=== PATIENT | female | born 1960 | race Caucasian/White ===

== ENCOUNTER 2017-08-15 09:31 | Outpatient (CLI) | payer OTHER ==
--- NOTE | 2017-08-15 12:03 | RAD ---
PA AND LATERAL VIEWS OF CHEST: Date: 08/15/17 HISTORY: Shortness of breath. FINDINGS: Comparison made with exam of 02/26/17. The heart size is normal. The lungs are hyperinflated with stable chronic changes. No focal areas of consolidation, pneumothorax, or pleural effusions are seen. No acute osseous abnormalities are iden tified. IMPRESSION: Stable exam. No acute process. POS: [facility]
== END 2017-08-15 09:32 | disposition home or self-care (01) ==
LOC: RAD-FRANK 09:31
PROVIDERS: ATTEND Nurse Practitioner Family
DX: R06.02 Shortness of breath (principal)
CPT/HCPCS: 71020

== ENCOUNTER 2017-10-11 15:53 | Inpatient (IN) | payer OTHER, SELFPAY ==
[2017-10-11] MEDS ORDERED: Albuterol Sulfate 2.5 mg/3 ml Neb NEB PRN (16:09)
[2017-10-11] MEDS ORDERED: Magnesium Sulfate 3 GM in Sodium Chloride 0.9% 100 ML IVPB SCH (16:15)
[2017-10-11] MEDS ORDERED: methylPREDNISolone Sod Succ/PF 125 MG/2 ML VIAL IVP SCH (16:15)
[2017-10-11 16:20] VITALS: BMI 23.0
[2017-10-11 17:38] LABS: #Basophils 0.1 thou/uL (0.0-0.2); #Eosinphils 0.9 thou/uL (0.0-0.7); #Lymphocytes 3.3 thou/uL (1.20-3.40); #Monocytes 0.6 thou/uL (0.11-0.59); #Neutrophils 6.2 thou/uL (1.40-6.50); %Basophils 1.2 % (0.0-1.0); %Eosinophils 7.9 % (0.0-10.0); %Lymphocytes 29.7 % (21.0-51.0); %Monocytes 5.7 % (0.0-10.0); Hematocrit 44.5 % (36.0-47.0); Mean Platelet Volume 6.9 fL (7.4-10.4); Red Blood Cell (RBC) Count 4.76 mill/uL (4.20-5.40); White Blood Cell (WBC) Count 11.1 thou/uL (4.8-10.8)
[2017-10-11] MEDS: Sodium Chloride 0.45% 1,000 ML IV SCH (17:54)
[2017-10-11 17:58] LABS: Anion Gap 13 mmol/L (10-20); BUN (Urea Nitrogen) 8 mg/dL (9.8-20.1); Calc. Creatinine Clearance 76 mL/min (70-130); Calcium 10.6 mg/dL (7.8-10.44); Carbon Dioxide 27 mmol/L (22-29); Chloride 102 mmol/L (98-107); Estimated GFR-MDRD 77
--- NOTE | 2017-10-11 18:43 | HP ---
I met just a little less than a month ago. She was referred for COPD. She has a lifelong history of smoking. She was down to smoking 4 or 5 cigarettes a day when she saw me. She tried Chantix and nicotine gum and everything else without much success. She had never tried lobo otine, electronic cigarettes because they were bad for her, but I had explained to her last visit frank t cigarettes are clearly worse for anything like electronic cigarette could do in my opinion. She gets Symbicort from [facility] and has been using albuterol on a nebulizer and takes Singulair. She is on Wellbutrin. She presented with 2 days of increasing shortness of breath. I added ipratropium last visit and she is up doing DuoNeb treatments every 3 hours last night, did not sleep. She wanted me to call in an a ntibiotic, but I asked her to come to the office. She had no fever, chills or sweats, but said she did feel chilled last night about the time she was t rying to go to bed. She has had no gross hematuria or dysuria. She denies arthritis symptoms or abdominal discomfort or chest discomfort. PAST MEDICAL HISTORY: Remarkable for, 1. Tonsillectomy. 2. Hysterectomy. 3. History of ripping some tendons, cutting some wood, this affected her right hand and led to attem pted surgical repairs. 4. She had fusion of her right wrist. 5. 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 6. She has had an appendectomy. 7. She had overnight [facility] hospitalization with COPD. FAMILY HISTORY: Positive for diabetes, heart disease, COPD, cancer, congestive heart failure, asthma , depression, alcoholism, sleep apnea, tuberculosis, hypertension, and arthritis. SOCIAL HISTORY: She is still smoking a few cigarettes, but has not in the last couple days. She is a nondrinker. ALLERGIES: She has no drug allergies. REVIEW OF SYSTEMS: A 10-point review of systems is otherwise negative. PHYSICAL EXAMINATION: VITAL SIGNS: Pulse is 88, oximetry is 93, respiratory rate is 26. HEENT: Pupils are equal. Sclerae is anicteric. NECK: Supple. LUNGS: Remarkable for diffuse wheezes with long expiratory phase. HEART: Regular rhythm, no S3. ABDOMEN: Soft and nontender. EXTREMITIES: Without clubbing, cyanosis, or edema. IMAGING: No chest radiographs have been done yet; this will be done on admission. IMPRESSION: Chronic obstructive pulmonary disease exacerbation, probably triggered by a viral illnes s. PLAN: Admission for IV fluids, steroids IV, and nebulized treatments every 4 hours and q.2 hours, p. o. antimicrobial therapy, Mucinex, IV magnesium, DVT prophylaxis with Lovenox and GI prophylaxis with Protonix. Hopefully, we will see some rapid improvement. She was unsure about whether or not she w anted to try to go home, but when she told me that she was up all night and was actually scared on to [place], I firmly recommended admission which she agreed to.
--- NOTE | 2017-10-11 20:33 | RAD ---
PORTABLE CHEST: 10/11/17 PROVIDED CLINICAL HISTORY: COPD. FINDINGS: Comparison is made with the study dated 08/15/17. Cardiac and mediastinal silhouette is within normal limits. Vascular calcification is seen. Emphysema tous changes are again noted. No focal consolidation, pleural fluid, or pneumothorax apparent. IMPRESSION: No evidence for acute cardiopulmonary process. POS: [facility]
[2017-10-11] MEDS: guaiFENesin ER 600 MG TAB PO SCH (20:38)
[2017-10-11] MEDS: Bupropion 150 MG SR TAB PO SCH (20:49)
[2017-10-11] MEDS: Doxycycline 100 MG CAP PO SCH (20:50)
[2017-10-11] MEDS ORDERED: Sterile Water 10 ML ONE (23:33)
[2017-10-12] MEDS: Sodium Chloride 0.45% 1,000 ML IV SCH ×2 (07:02→22:50)
[2017-10-12] MEDS: guaiFENesin ER 600 MG TAB PO SCH ×2 (09:06→20:58)
[2017-10-12] MEDS: Doxycycline 100 MG CAP PO SCH ×2 (09:06→20:58)
[2017-10-12] MEDS: Enoxaparin Sodium 40 MG/0.4 ML SYRINGE SC SCH (09:07)
[2017-10-12] MEDS: Bupropion 150 MG SR TAB PO SCH (20:58)
--- NOTE | 2017-10-12 22:38 | PRG ---
DATE OF SERVICE: 10/12/2017 SUBJECTIVE: Sumi Prather says she feels better. She is not back to her baseline. She is still ramona rt of breath to a degree such that she feels it would not be safe for her to go home out in the count ry. PHYSICAL EXAMINATION: VITAL SIGNS: She is afebrile, heart rate is 99, respiratory rate 16, oximetry is 97 on 2 liters, blo od pressure 104/60. LUNGS: Remarkable for diffuse wheezes, but she has much more air movement today and shorter expirato ry time. HEART: Regular rhythm. ABDOMEN: Soft. LABORATORY DATA: Yesterday, white count 11, hemoglobin 14.6, platelets 286. Electrolytes are normal. BUN was 8, creatinine 0.7, calcium was 10.6. Chest radiograph did not show any alveolar infiltrates or mass lesions. This has been reviewed by me. IMPRESSION: 1. Chronic obstructive pulmonary disease exacerbation with respiratory muscle insufficiency. 2. Acute on chronic respiratory failure, not on oxygen at home. 3. History of heavy tobacco use, abstinent now. 4. History of lipid disorder. 5. History of hypertension. She has issues with medications, i.e., cost, so I have tried to keep he r with samples since she has been getting some medicines from [facility]. PLAN: Continue IV steroids. Continue frequent nebulizer treatments, continue p.o. antibiotics. Con tinue DVT prophylaxis with Lovenox. Continue GI prophylaxis with Protonix.
[2017-10-13] MEDS: guaiFENesin ER 600 MG TAB PO SCH ×2 (09:07→20:42)
[2017-10-13] MEDS: PROVENTIL INHALER 6.7 G (200 INHALATIONS) INH PRN ×2 (09:13→18:01)
[2017-10-13] MEDS: Enoxaparin Sodium 40 MG/0.4 ML SYRINGE SC SCH (09:17)
[2017-10-13] MEDS: Doxycycline 100 MG CAP PO SCH ×2 (10:00→20:42)
[2017-10-13] MEDS: Sodium Chloride 0.45% 1,000 ML IV SCH (10:09)
--- NOTE | 2017-10-13 11:05 | PRG ---
DATE OF SERVICE: 10/13/2017 SUBJECTIVE: Still does not feel like she is well enough to go home. OBJECTIVE: VITAL SIGNS: She is afebrile, heart rate is 87, respiratory rate is 22, oximetry is 97 on 2 liters, blood pressure is 120/68. LUNGS: Remarkable for diffuse wheezes, but she is improving slightly on a daily basis. CARDIOVASCULAR: Regular rhythm. S1 and S2 are normal. ABDOMEN: Soft and nontender. EXTREMITIES: Without asymmetry. IMPRESSION: Chronic obstructive pulmonary disease exacerbation. PLAN: I will repeat a CBC and BMP tomorrow. Hopefully, she will feel good enough to go home tomorro w. She is improving slowly. I suspect all of this was triggered by viral illness.
[2017-10-13] MEDS: Bupropion 150 MG SR TAB PO SCH (20:43)
[2017-10-14] MEDS: Sodium Chloride 0.45% 1,000 ML IV SCH (01:24)
[2017-10-14 04:48] LABS: Hematocrit 38.2 % (36.0-47.0); Mean Platelet Volume 7.5 fL (7.4-10.4); Red Blood Cell (RBC) Count 4.08 mill/uL (4.20-5.40); White Blood Cell (WBC) Count 14.1 thou/uL (4.8-10.8)
[2017-10-14 04:58] LABS: Anion Gap 14 mmol/L (10-20); BUN (Urea Nitrogen) 14 mg/dL (9.8-20.1); Calc. Creatinine Clearance 73 mL/min (70-130); Calcium 10.1 mg/dL (7.8-10.44); Carbon Dioxide 24 mmol/L (22-29); Chloride 104 mmol/L (98-107); Estimated GFR-MDRD 73
[2017-10-14 06:05] LABS: Band 3 % (5-11); Neutrophil 74 % (42-75)
[2017-10-14 08:06] VITALS: BP 114/71; TEMP 98.1
[2017-10-14] MEDS: Doxycycline 100 MG CAP PO SCH (09:22)
[2017-10-14] MEDS: guaiFENesin ER 600 MG TAB PO SCH (09:22)
[2017-10-14] MEDS: Enoxaparin Sodium 40 MG/0.4 ML SYRINGE SC SCH (09:23)
[2017-10-14] MEDS: PROVENTIL INHALER 6.7 G (200 INHALATIONS) INH PRN (11:52)
--- NOTE | 2017-10-14 21:49 | DIS ---
HISTORY: Ms. Prather did well overnight. She is near her baseline, although not quite there. She st ill has expiratory wheezes at her bases, but she has dramatically improved compared to several days a go and actually compared to yesterday. She feels she is safe to go home. Remainder of her vital sig ns and exam are unchanged. DISCHARGE DIAGNOSIS: Chronic obstructive pulmonary disease exacerbation with acute bronchitis, impro rubi on steroids, nebulizer treatments, and doxycycline. DISCHARGE INSTRUCTIONS: She will go home on her DuoNeb 4 times a day and p.r.n. She will continue w ith prednisone 40 mg for 6 days, and 20 mg for 10 days, and 10 mg for 10 days, she is to take doxycyc line for another 10 days, 100 mg twice a day. She will follow up with me in 2 weeks in the office. No radiographs needed for followup visit since she had no infiltrates or mass lesions on radiograph t his admission when reviewed by me.
== END 2017-10-14 14:48 | disposition home or self-care (01) | DRG 190 ==
LOC: ONC 15:53
PROVIDERS: ADMIT Internal Medicine Critical Care Medicine; ATTEND Internal Medicine Critical Care Medicine
DX: J44.0 Chronic obstructive pulmonary disease with (acute) lower respiratory infection (principal); J96.20 Acute and chronic respiratory failure, unspecified whether with hypoxia or hypercapnia; J44.1 Chronic obstructive pulmonary disease with (acute) exacerbation; F17.210 Nicotine dependence, cigarettes, uncomplicated; E78.5 Hyperlipidemia, unspecified; I10 Essential (primary) hypertension; J20.9 Acute bronchitis, unspecified
CPT/HCPCS: 36415; 71010; 80048; 85007; 85025; 85027; 94640; A4216; J1650; J2920; J2930; J3475; J7050; J7620

== ENCOUNTER 2018-03-13 08:43 | Outpatient (CLI) | payer OTHER ==
--- NOTE | 2018-03-13 09:47 | RAD ---
TWO VIEW CHEST: Comparison: 10-11-17 Clinical history: Dyspnea. FINDINGS: There is no lobar consolidation, effusion, or pneumothorax. Lungs are hyperinflated. There is vascula r calcification. IMPRESSION: 1. Stable chest. 2. COPD. POS: [facility]
== END 2018-03-13 08:44 | disposition home or self-care (01) ==
LOC: RAD 08:43
PROVIDERS: ATTEND Internal Medicine Critical Care Medicine
DX: J44.9 Chronic obstructive pulmonary disease, unspecified (principal)
CPT/HCPCS: 71046

== ENCOUNTER 2021-02-24 08:59 | Inpatient (IN) | payer OTHER, SELFPAY ==
[2021-02-24] MEDS ORDERED: methylPREDNISolone Sod Succ/PF 125 MG/2 ML VIAL ONE (09:37)
[2021-02-24] MEDS ORDERED: cefTRIAXone\\ROCEPHIN 2 GM VIAL ONE (09:37)
[2021-02-24] MEDS ORDERED: Ketamine 50 MG/ML (10ML VIAL) ONE (09:41)
[2021-02-24 09:45] LABS: Actual Bicarbonate (HCO3a) 11.6 mEq/L (22-28); Analyzer IN Cardio ER; Base Excess (BEa) -10.2 mEq/L (-2.0 to +3.0); Calcium, Ionized (arterial) 1.02 mmol/L (1.12-1.30); Carboxyhemoglobin (COHb) 0.4 gm% (0.0-3.0); Hemoglobin (Hb) 13.8 g/dL (12.0-16.0); O2 Tension (PaO2), arterial 171.8 mmHg (> 80.0); pH, Arterial 7.42 (7.35-7.45)
[2021-02-24 09:47] LABS: CO2 Tension 18.4 mmHg (35.0-45.0); Puncture Site RRA
[2021-02-24 10:00] LABS: Hemoglobin 13.6 g/dL (12.0-16.0); Red Blood Cell (RBC) Count 4.91 mill/uL (4.20-5.40); White Blood Cell (WBC) Count 9.9 thou/uL (4.8-10.8)
[2021-02-24 10:01] LABS: Mean Corpuscular HGB CONC 30.6 g/dL (32.0-36.0); Mean Corpuscular Hemoglobin 27.7 pg (27.0-31.0); Mean Corpuscular Volume 90.5 fL (78.0-98.0); Mean Platelet Volume 7.6 fL (7.4-10.4); Platelet Count 361 thou/uL (130-400); RBC Distribution Width 12.7 % (11.5-14.5)
[2021-02-24] MEDS ORDERED: Sodium Chloride 0.9% 100 ML ONE (10:13)
[2021-02-24] MEDS ORDERED: Azithromycin 500 MG VIAL ONE (10:13)
[2021-02-24 10:34] LABS: ALT (SGPT) 34 U/L (8-55)
[2021-02-24 10:40] LABS: CK (CPK) 4515 U/L (29-168)
[2021-02-24 10:56] LABS: AST (SGOT) 91 U/L (5-34); Albumin 3.6 g/dL (3.4-4.8); Alkaline Phosphatase 56 U/L (40-110); Anion Gap 27 mmol/L (10-20); BUN (Urea Nitrogen) 16 mg/dL (9.8-20.1); Bilirubin, Total 1.1 mg/dL (0.2-1.2); Calc. Creatinine Clearance 0 mL/min (70-130); Carbon Dioxide 13 mmol/L (23-31); Chloride 92 mmol/L (98-107); Globulin 3.5 g/dL (2.4-3.5); Glucose 82 mg/dL (80-115); Potassium 3.6 mmol/L (3.5-5.1); Protein, Total 7.1 g/dL (5.8-8.1); Sodium 128 mmol/L (136-145)
[2021-02-24 11:12] LABS: SARS-CoV-2 NAA Rapid Test Not Detected (NotDetected)
[2021-02-24 11:41] LABS: Band 32 % (5-11); Lymphocytes 11 % (21-51); Metamyelocyte 7 % (0-0); Monocytes 13 % (0-10); Myelocyte 3 % (0-0); Neutrophil 34 % (42-75); Vacuoles MODERATE
[2021-02-24 11:42] LABS: MDiff Complete? YES; Polychromasia SLIGHT = 2-3 cells (100X) (0-2/hpf)
[2021-02-24] MEDS ORDERED: Ondansetron PF 4 MG/2 ML Vial IVP PRN (11:54)
[2021-02-24] MEDS ORDERED: Morphine 4 MG/ML VIAL SLOW IVP PRN (12:09)
[2021-02-24] MEDS ORDERED: Vancomycin 1.5 GRAM/300 ML BAG 1.5 GM in Premix Bag 1 BAG IVPB SCH (13:00)
[2021-02-24 13:23] LABS: Troponin I 0.069 ng/mL (< 0.028)
[2021-02-24] MEDS ORDERED: Vancomycin HCl 1.5 GM in Sodium Chloride 0.9% 250 ML 300 ML IVPB SCH (13:30)
[2021-02-24 13:31] LABS: Lactic Acid 4.5 mmol/L (0.5-2.2)
[2021-02-24] MEDS: Sodium Chloride 0.9% 1,000 ML IV SCH ×2 (15:45→18:45)
[2021-02-24] MEDS: Piperacillin/Tazobactam 3.375 GM in Sodium Chloride 0.9% 100 ML IVPB SCH ×3 (15:45→23:13)
[2021-02-24 16:00] VITALS: BMI 27.3
[2021-02-24] MEDS ORDERED: Albuterol Sulfate 2.5 mg/3 ml Neb NEB PRN (16:17)
[2021-02-24] MEDS ORDERED: Magnesium 2 GM/50 ML 2 GM in Premix Bag 1 BAG IVPB SCH (17:00)
[2021-02-24 17:12] LABS: Troponin I 0.047 ng/mL (< 0.028)
[2021-02-24] MEDS: methylPREDNISolone Sod Succ 40 MG VIAL IVP SCH ×2 (17:33→23:13)
[2021-02-24] MEDS: Mometasone 200 MCG/Formoterol 5 MCG 120 PUFF INHALER INH SCH (17:47)
[2021-02-24 18:58] LABS: Lactic Acid 2.8 mmol/L (0.5-2.2)
[2021-02-24] MEDS: Enoxaparin Sodium 40 MG/0.4 ML SYRINGE SC SCH (20:15)
[2021-02-24] MEDS ORDERED: Vancomycin 1 GM in Premix Bag 1 BAG IVPB SCH (21:00)
[2021-02-24] MEDS ORDERED: Metoprolol Tartrate 50 MG TAB PO SCH (22:30)
[2021-02-24] MEDS ORDERED: Bupropion 150 MG XL TAB PO SCH (22:30)
[2021-02-24] MEDS ORDERED: Atorvastatin Calcium 10 MG TAB PO SCH (22:30)
[2021-02-25 04:30] LABS: Band 55 % (5-11); Hemoglobin 11.2 g/dL (12.0-16.0); Lymphocytes 3 % (21-51); MDiff Complete? YES; Mean Corpuscular HGB CONC 30.9 g/dL (32.0-36.0); Mean Corpuscular Volume 90.5 fL (78.0-98.0); Mean Platelet Volume 7.7 fL (7.4-10.4); Metamyelocyte 3 % (0-0); Monocytes 2 % (0-10); Neutrophil 37 % (42-75); Platelet Count 250 thou/uL (130-400); Platelet Morphology Comment Appears Adequate; RBC Distribution Width 12.5 % (11.5-14.5); RBC Morphology Normal; White Blood Cell (WBC) Count 18.7 thou/uL (4.8-10.8)
[2021-02-25 04:31] LABS: Lactic Acid 1.9 mmol/L (0.5-2.2)
[2021-02-25 04:37] LABS: ALT (SGPT) 50 U/L (8-55); AST (SGOT) 105 U/L (5-34); Albumin 2.8 g/dL (3.4-4.8); Alkaline Phosphatase 43 U/L (40-110); Anion Gap 17 mmol/L (10-20); BUN (Urea Nitrogen) 26 mg/dL (9.8-20.1); Bilirubin, Total 0.4 mg/dL (0.2-1.2); CK (CPK) 3797 U/L (29-168); Calc. Creatinine Clearance 34 mL/min (70-130); Calcium 7.2 mg/dL (7.8-10.44); Carbon Dioxide 19 mmol/L (23-31); Chloride 99 mmol/L (98-107); Globulin 2.9 g/dL (2.4-3.5); Glucose 69 mg/dL (80-115); Potassium 4.2 mmol/L (3.5-5.1); Protein, Total 5.7 g/dL (5.8-8.1); Sodium 131 mmol/L (136-145)
[2021-02-25] MEDS: Piperacillin/Tazobactam 3.375 GM in Sodium Chloride 0.9% 100 ML IVPB SCH ×2 (06:45→12:52)
[2021-02-25] MEDS: Mometasone 200 MCG/Formoterol 5 MCG 120 PUFF INHALER INH SCH ×2 (06:46→19:19)
[2021-02-25] MEDS: Sodium Chloride 0.9% 1,000 ML IV SCH ×4 (06:48→21:00)
[2021-02-25] MEDS: methylPREDNISolone Sod Succ 40 MG VIAL IVP SCH ×3 (06:48→16:56)
[2021-02-25] MEDS ORDERED: Enoxaparin Sodium 30 MG/0.3 ML SYRINGE SC SCH (09:00)
[2021-02-25] MEDS: Famotidine/PF 20 mg/2ml Vial SLOW IVP SCH (10:14)
[2021-02-25 12:21] LABS: Vancomycin, Random 14.9 ug/mL (See Comment)
[2021-02-25] MEDS ORDERED: Vancomycin 1 GM in Premix Bag 1 BAG IVPB SCH (12:30)
[2021-02-25] MEDS: Piperacillin/Tazobactam 2.25 GM in Sodium Chloride 0.9% 100 ML IVPB SCH (16:56)
[2021-02-25] MEDS: Morphine 4 MG/ML VIAL SLOW IVP PRN (16:56)
[2021-02-25] MEDS: Enoxaparin Sodium 40 MG/0.4 ML SYRINGE SC SCH (20:35)
[2021-02-25] MEDS: Metoprolol Tartrate 50 MG TAB PO SCH (20:35)
[2021-02-25] MEDS ORDERED: Bupropion 150 MG XL TAB PO SCH (21:00)
[2021-02-25] MEDS ORDERED: Atorvastatin Calcium 10 MG TAB PO SCH (21:00)
[2021-02-26] MEDS: Piperacillin/Tazobactam 2.25 GM in Sodium Chloride 0.9% 100 ML IVPB SCH ×4 (00:17→17:31)
[2021-02-26] MEDS: methylPREDNISolone Sod Succ 40 MG VIAL IVP SCH ×4 (00:19→22:18)
[2021-02-26] MEDS: Morphine 4 MG/ML VIAL SLOW IVP PRN (01:46)
[2021-02-26 05:25] LABS: Hemoglobin 10.5 g/dL (12.0-16.0); Lymphocytes 2 % (21-51); MDiff Complete? YES; Mean Corpuscular HGB CONC 32.1 g/dL (32.0-36.0); Mean Corpuscular Hemoglobin 28.9 pg (27.0-31.0); Mean Corpuscular Volume 90.1 fL (78.0-98.0); Mean Platelet Volume 7.9 fL (7.4-10.4); Metamyelocyte 1 % (0-0); Monocytes 9 % (0-10); Neutrophil 88 % (42-75); Platelet Count 235 thou/uL (130-400); Platelet Morphology Comment Appears Adequate; RBC Distribution Width 12.5 % (11.5-14.5); Red Blood Cell (RBC) Count 3.63 mill/uL (4.20-5.40); White Blood Cell (WBC) Count 25.3 thou/uL (4.8-10.8)
[2021-02-26 05:27] LABS: ALT (SGPT) 57 U/L (8-55); AST (SGOT) 82 U/L (5-34); Albumin 2.9 g/dL (3.4-4.8); Alkaline Phosphatase 69 U/L (40-110); Anion Gap 22 mmol/L (10-20); BUN (Urea Nitrogen) 44 mg/dL (9.8-20.1); Bilirubin, Total 0.3 mg/dL (0.2-1.2); CK (CPK) 2195 U/L (29-168); Calc. Creatinine Clearance 28 mL/min (70-130); Calcium 7.7 mg/dL (7.8-10.44); Carbon Dioxide 15 mmol/L (23-31); Chloride 100 mmol/L (98-107); Globulin 3.4 g/dL (2.4-3.5); Glucose 73 mg/dL (80-115); Potassium 4.3 mmol/L (3.5-5.1); Protein, Total 6.3 g/dL (5.8-8.1); Sodium 133 mmol/L (136-145)
[2021-02-26] MEDS: Mometasone 200 MCG/Formoterol 5 MCG 120 PUFF INHALER INH SCH ×2 (08:19→18:41)
[2021-02-26] MEDS: Famotidine/PF 20 mg/2ml Vial SLOW IVP SCH (09:31)
[2021-02-26] MEDS: Sodium Chloride 0.9% 1,000 ML IV SCH (12:48)
[2021-02-26 13:14] LABS: Vancomycin, Random 21.4 ug/mL (See Comment)
[2021-02-26] MEDS: Haloperidol Lactate 5 MG/ML VIAL SLOW IVP PRN ×3 (15:12→23:13)
[2021-02-26] MEDS ORDERED: Vancomycin HCl 750 MG in Sodium Chloride 0.9% 250 ML 250 ML IVPB SCH (16:00)
[2021-02-26] MEDS: Diltiazem HCl 125 MG, Admixture Fee 1 EACH in Sodium Chloride 0.9% 100 ML IVPB SCH (19:54)
[2021-02-26] MEDS ORDERED: Enoxaparin Sodium 30 MG/0.3 ML SYRINGE SC SCH (21:00)
[2021-02-26 21:52] LABS: Troponin I 1.168 ng/mL (< 0.028)
[2021-02-26] MEDS ORDERED: Enoxaparin Sodium 40 MG/0.4 ML SYRINGE SC SCH (22:30)
[2021-02-26] MEDS ORDERED: Enoxaparin Sodium 80 MG/0.8 ML SYRINGE SC SCH (22:30)
[2021-02-26] MEDS ORDERED: Digoxin 0.5 MG/2 ML AMP SLOW IVP SCH (22:30)
[2021-02-26] MEDS: Metoprolol Tartrate 50 MG TAB PO SCH (23:24)
[2021-02-27] MEDS ORDERED: Digoxin 0.5 MG/2 ML AMP SLOW IVP SCH (00:45)
[2021-02-27 00:53] LABS: Troponin I 1.459 ng/mL (< 0.028)
[2021-02-27] MEDS: Sodium Chloride 0.9% 1,000 ML IV SCH (01:23)
[2021-02-27] MEDS: Piperacillin/Tazobactam 2.25 GM in Sodium Chloride 0.9% 100 ML IVPB SCH ×4 (01:24→17:54)
[2021-02-27] MEDS: Mometasone 200 MCG/Formoterol 5 MCG 120 PUFF INHALER INH SCH ×2 (07:05→18:50)
[2021-02-27] MEDS: Diltiazem HCl 125 MG, Admixture Fee 1 EACH in Sodium Chloride 0.9% 100 ML IVPB SCH (08:41)
[2021-02-27] MEDS: Famotidine/PF 20 mg/2ml Vial SLOW IVP SCH (08:41)
[2021-02-27] MEDS: methylPREDNISolone Sod Succ 40 MG VIAL IVP SCH ×2 (08:41→21:33)
[2021-02-27 11:05] LABS: ALT (SGPT) 59 U/L (8-55); AST (SGOT) 55 U/L (5-34); Alkaline Phosphatase 59 U/L (40-110); Anion Gap 20 mmol/L (10-20); BUN (Urea Nitrogen) 53 mg/dL (9.8-20.1); Bilirubin, Total 0.3 mg/dL (0.2-1.2); CK (CPK) 901 U/L (29-168); Calc. Creatinine Clearance 31 mL/min (70-130); Calcium 8.4 mg/dL (7.8-10.44); Carbon Dioxide 15 mmol/L (23-31); Chloride 105 mmol/L (98-107); Globulin 3.4 g/dL (2.4-3.5); Glucose 110 mg/dL (80-115); Protein, Total 6.4 g/dL (5.8-8.1); Sodium 136 mmol/L (136-145)
[2021-02-27 11:10] LABS: Critical Call Chem Troponin I RESULT DECREASING; Troponin I 0.821 ng/mL (< 0.028)
[2021-02-27 11:54] LABS: Band 3 % (5-11); Hemoglobin 10.3 g/dL (12.0-16.0); Lymphocytes 3 % (21-51); MDiff Complete? YES; Mean Corpuscular HGB CONC 31.7 g/dL (32.0-36.0); Mean Corpuscular Hemoglobin 28.6 pg (27.0-31.0); Mean Corpuscular Volume 90.4 fL (78.0-98.0); Mean Platelet Volume 8.3 fL (7.4-10.4); Monocytes 6 % (0-10); Neutrophil 88 % (42-75); Platelet Count 210 thou/uL (130-400); Platelet Morphology Comment Appears Adequate; RBC Distribution Width 12.7 % (11.5-14.5); RBC Morphology Normal; White Blood Cell (WBC) Count 28.5 thou/uL (4.8-10.8)
[2021-02-27] MEDS: Metoprolol Tartrate 25 MG TAB PO SCH (21:29)
[2021-02-27] MEDS: Enoxaparin Sodium 80 MG/0.8 ML SYRINGE SC SCH (21:35)
[2021-02-28] MEDS: Piperacillin/Tazobactam 2.25 GM in Sodium Chloride 0.9% 100 ML IVPB SCH ×4 (00:40→18:38)
[2021-02-28] MEDS: Diltiazem HCl 125 MG, Admixture Fee 1 EACH in Sodium Chloride 0.9% 100 ML IVPB SCH ×2 (02:45→20:36)
[2021-02-28 04:09] LABS: Anion Gap 23 mmol/L (10-20); BUN (Urea Nitrogen) 63 mg/dL (9.8-20.1); CK (CPK) 331 U/L (29-168); Calc. Creatinine Clearance 28 mL/min (70-130); Calcium 8.6 mg/dL (7.8-10.44); Carbon Dioxide 12 mmol/L (23-31); Chloride 107 mmol/L (98-107); Glucose 148 mg/dL (80-115); Sodium 138 mmol/L (136-145)
[2021-02-28 04:17] LABS: Band 9 % (5-11); Hemoglobin 9.6 g/dL (12.0-16.0); Lymphocytes 9 % (21-51); MDiff Complete? YES; Mean Corpuscular HGB CONC 29.1 g/dL (32.0-36.0); Mean Corpuscular Hemoglobin 26.6 pg (27.0-31.0); Mean Corpuscular Volume 91.6 fL (78.0-98.0); Mean Platelet Volume 8.5 fL (7.4-10.4); Monocytes 5 % (0-10); Neutrophil 77 % (42-75); Platelet Count 177 thou/uL (130-400); RBC Distribution Width 12.8 % (11.5-14.5); Red Blood Cell (RBC) Count 3.59 mill/uL (4.20-5.40); Toxic Granulation SLIGHT; Vacuoles SLIGHT; White Blood Cell (WBC) Count 22.5 thou/uL (4.8-10.8)
[2021-02-28] MEDS: methylPREDNISolone Sod Succ 40 MG VIAL IVP SCH ×2 (09:12→20:25)
[2021-02-28] MEDS: Famotidine/PF 20 mg/2ml Vial SLOW IVP SCH (09:12)
[2021-02-28] MEDS ORDERED: Amiodarone 150 MG, Admixture Fee 1 EACH in Dextrose 5% in Water 100 ML IVPB SCH (09:45)
[2021-02-28] MEDS: Mometasone 200 MCG/Formoterol 5 MCG 120 PUFF INHALER INH SCH ×2 (10:12→19:30)
[2021-02-28] MEDS: Metoprolol Tartrate 25 MG TAB PO SCH ×2 (12:23→20:26)
[2021-02-28] MEDS: Arformoterol 15 MCG/2 ML NEB NEB SCH (19:25)
[2021-02-28] MEDS: Budesonide 0.5 MG/2 ML NEB NEB SCH (19:26)
[2021-02-28] MEDS: Ipratropium Bromide 2.5 ml Neb NEB SCH ×2 (19:27→23:45)
[2021-02-28] MEDS: Levalbuterol HCl 0.63 MG/3 ML NEB NEB SCH ×2 (19:29→23:45)
[2021-02-28] MEDS: Enoxaparin Sodium 80 MG/0.8 ML SYRINGE SC SCH (20:25)
[2021-02-28] MEDS: Amiodarone 450 MG, Admixture Fee 1 EACH in Dextrose 5% in Water 250 ML IVPB SCH (20:37)
[2021-03-01] MEDS: Piperacillin/Tazobactam 2.25 GM in Sodium Chloride 0.9% 100 ML IVPB SCH ×5 (01:12→23:37)
[2021-03-01 04:17] LABS: Anion Gap 20 mmol/L (10-20); BUN (Urea Nitrogen) 62 mg/dL (9.8-20.1); Calc. Creatinine Clearance 28 mL/min (70-130); Calcium 9.5 mg/dL (7.8-10.44); Carbon Dioxide 15 mmol/L (23-31); Chloride 109 mmol/L (98-107); Glucose 190 mg/dL (80-115); Magnesium 2.3 mg/dL (1.6-2.6); Phosphorus 4.1 mg/dL (2.3-4.7); Potassium 3.6 mmol/L (3.5-5.1); Sodium 140 mmol/L (136-145)
[2021-03-01] MEDS: Diltiazem HCl 125 MG, Admixture Fee 1 EACH in Sodium Chloride 0.9% 100 ML IVPB SCH ×2 (06:00→23:37)
[2021-03-01] MEDS: Levalbuterol HCl 0.63 MG/3 ML NEB NEB SCH ×4 (08:02→23:59)
[2021-03-01] MEDS: Arformoterol 15 MCG/2 ML NEB NEB SCH ×2 (08:05→19:01)
[2021-03-01] MEDS: Ipratropium Bromide 2.5 ml Neb NEB SCH ×3 (08:05→19:00)
[2021-03-01] MEDS: Budesonide 0.5 MG/2 ML NEB NEB SCH ×2 (08:06→19:01)
[2021-03-01] MEDS: Mometasone 200 MCG/Formoterol 5 MCG 120 PUFF INHALER INH SCH (08:07)
[2021-03-01] MEDS ORDERED: Furosemide 40 MG/4 ML VIAL ONE (08:40)
[2021-03-01] MEDS: Famotidine/PF 20 mg/2ml Vial SLOW IVP SCH (08:44)
[2021-03-01] MEDS: methylPREDNISolone Sod Succ 40 MG VIAL IVP SCH ×2 (08:45→20:41)
[2021-03-01] MEDS: Metoprolol Tartrate 25 MG TAB PO SCH (08:48)
[2021-03-01] MEDS: Amiodarone 200 MG TAB PO SCH ×2 (08:48→20:40)
[2021-03-01] MEDS: Morphine 4 MG/ML VIAL SLOW IVP PRN (13:50)
[2021-03-01] MEDS: Enoxaparin Sodium 80 MG/0.8 ML SYRINGE SC SCH (20:40)
[2021-03-02 04:29] LABS: Anion Gap 18 mmol/L (10-20); BUN (Urea Nitrogen) 63 mg/dL (9.8-20.1); Calc. Creatinine Clearance 25 mL/min (70-130); Calcium 9.3 mg/dL (7.8-10.44); Carbon Dioxide 19 mmol/L (23-31); Chloride 111 mmol/L (98-107); Glucose 181 mg/dL (80-115); Magnesium 2.1 mg/dL (1.6-2.6); Phosphorus 3.8 mg/dL (2.3-4.7); Potassium 3.8 mmol/L (3.5-5.1); Sodium 144 mmol/L (136-145)
[2021-03-02 05:10] LABS: Band 9 % (5-11); Hemoglobin 9.3 g/dL (12.0-16.0); Lymphocytes 2 % (21-51); MDiff Complete? YES; Mean Corpuscular HGB CONC 31.3 g/dL (32.0-36.0); Mean Corpuscular Hemoglobin 28.2 pg (27.0-31.0); Mean Corpuscular Volume 90.1 fL (78.0-98.0); Mean Platelet Volume 8.5 fL (7.4-10.4); Neutrophil 89 % (42-75); Platelet Count 204 thou/uL (130-400); RBC Distribution Width 13.2 % (11.5-14.5); Red Blood Cell (RBC) Count 3.31 mill/uL (4.20-5.40); White Blood Cell (WBC) Count 28.4 thou/uL (4.8-10.8)
[2021-03-02] MEDS: Piperacillin/Tazobactam 2.25 GM in Sodium Chloride 0.9% 100 ML IVPB SCH ×3 (06:01→17:19)
[2021-03-02] MEDS: Amiodarone 450 MG, Admixture Fee 1 EACH in Dextrose 5% in Water 250 ML IVPB SCH ×2 (06:53→23:53)
[2021-03-02] MEDS: Arformoterol 15 MCG/2 ML NEB NEB SCH ×2 (08:01→18:53)
[2021-03-02] MEDS: Ipratropium Bromide 2.5 ml Neb NEB SCH ×5 (08:02→23:23)
[2021-03-02] MEDS: Budesonide 0.5 MG/2 ML NEB NEB SCH ×2 (08:02→18:53)
[2021-03-02] MEDS: Levalbuterol HCl 0.63 MG/3 ML NEB NEB SCH ×4 (08:05→23:24)
[2021-03-02] MEDS: Amiodarone 200 MG TAB PO SCH ×2 (09:25→20:03)
[2021-03-02] MEDS: methylPREDNISolone Sod Succ 40 MG VIAL IVP SCH ×2 (09:25→19:57)
[2021-03-02] MEDS: Famotidine/PF 20 mg/2ml Vial SLOW IVP SCH (09:26)
[2021-03-02] MEDS ORDERED: Vancomycin 1 GM in Premix Bag 1 BAG IVPB SCH (17:45)
[2021-03-02] MEDS ORDERED: VANCOMYCIN 1.25 GM/250 ML BAG 1.25 GM in Premix Bag 1 BAG IVPB SCH (19:30)
[2021-03-02] MEDS: Dextrose 5% in Water 1,000 ML IV SCH (19:57)
[2021-03-02] MEDS ORDERED: Vancomycin HCl 750 MG in Sodium Chloride 0.9% 250 ML 250 ML IVPB SCH (20:00)
[2021-03-02] MEDS: Enoxaparin Sodium 80 MG/0.8 ML SYRINGE SC SCH (20:00)
[2021-03-02] MEDS: Lantus 1000 UNITS/10 ML VIAL SC SCH (20:09)
[2021-03-02] MEDS: Metoprolol Tartrate 25 MG TAB PO SCH (20:30)
[2021-03-02] MEDS ORDERED: Merrem (PEDI) 500 MG in Syringe 0 ML IVPB SCH (22:00)
[2021-03-02] MEDS: Meropenem 500 MG in Sodium Chloride 0.9% 100 ML IVPB SCH (22:01)
[2021-03-02] MEDS: Diltiazem HCl 125 MG, Admixture Fee 1 EACH in Sodium Chloride 0.9% 100 ML IVPB SCH (23:53)
[2021-03-03] MEDS: Morphine 4 MG/ML VIAL SLOW IVP PRN (03:03)
[2021-03-03] MEDS: Meropenem 500 MG in Sodium Chloride 0.9% 100 ML IVPB SCH ×2 (05:54→16:01)
[2021-03-03] MEDS: Ipratropium Bromide 2.5 ml Neb NEB SCH ×2 (07:26→14:27)
[2021-03-03] MEDS: Arformoterol 15 MCG/2 ML NEB NEB SCH (07:27)
[2021-03-03] MEDS: Budesonide 0.5 MG/2 ML NEB NEB SCH (07:27)
[2021-03-03] MEDS: Levalbuterol HCl 0.63 MG/3 ML NEB NEB SCH ×2 (07:36→14:27)
[2021-03-03 08:59] LABS: Hemoglobin 9.4 g/dL (12.0-16.0); Mean Corpuscular HGB CONC 29.8 g/dL (32.0-36.0); Mean Corpuscular Hemoglobin 27.5 pg (27.0-31.0); Mean Corpuscular Volume 92.3 fL (78.0-98.0); Mean Platelet Volume 8.5 fL (7.4-10.4); Platelet Count 264 thou/uL (130-400); RBC Distribution Width 13.4 % (11.5-14.5); Red Blood Cell (RBC) Count 3.44 mill/uL (4.20-5.40); White Blood Cell (WBC) Count 41.8 thou/uL (4.8-10.8)
[2021-03-03] MEDS ORDERED: Pantoprazole 40 MG VIAL IVP SCH (09:00)
[2021-03-03 09:05] LABS: ALT (SGPT) 31 U/L (8-55); AST (SGOT) 13 U/L (5-34); Albumin 2.7 g/dL (3.4-4.8); Alkaline Phosphatase 72 U/L (40-110); Anion Gap 15 mmol/L (10-20); BUN (Urea Nitrogen) 64 mg/dL (9.8-20.1); Bilirubin, Total 0.3 mg/dL (0.2-1.2); Calc. Creatinine Clearance 23 mL/min (70-130); Calcium 9.4 mg/dL (7.8-10.44); Carbon Dioxide 20 mmol/L (23-31); Chloride 112 mmol/L (98-107); Glucose 288 mg/dL (80-115); Potassium 3.4 mmol/L (3.5-5.1); Protein, Total 5.7 g/dL (5.8-8.1); Sodium 144 mmol/L (136-145)
[2021-03-03] MEDS: Lantus 1000 UNITS/10 ML VIAL SC SCH (09:48)
[2021-03-03] MEDS: Metoprolol Tartrate 25 MG TAB PO SCH (09:48)
[2021-03-03] MEDS: Amiodarone 200 MG TAB PO SCH (09:48)
[2021-03-03] MEDS: Dextrose 5% in Water 1,000 ML IV SCH ×2 (09:55→16:02)
[2021-03-03] MEDS: methylPREDNISolone Sod Succ 40 MG VIAL IVP SCH (09:55)
[2021-03-03 10:08] LABS: Band 6 % (5-11); Lymphocytes 3 % (21-51); MDiff Complete? YES; Metamyelocyte 1 % (0-0); Monocytes 1 % (0-10); Myelocyte 1 % (0-0); Neutrophil 88 % (42-75); Nucleated RBC 1 % (0); Platelet Morphology Comment Appears Adequate; Polychromasia SLIGHT = 2-3 cells (100X) (0-2/hpf); Vacuoles MODERATE
[2021-03-03] MEDS ORDERED: HYDROmorphone 2 MG/ML VIAL ONE (10:37)
[2021-03-03] MEDS ORDERED: Morphine 4 MG/ML VIAL SLOW IVP SCH (16:15)
[2021-03-03] MEDS ORDERED: Morphine 4 MG/ML VIAL SLOW IVP PRN (16:15)
[2021-03-03] MEDS ORDERED: Hyoscyamine Sulfate SL 0.125 mg Tablet SL PRN (16:18)
[2021-03-03] MEDS ORDERED: Lorazepam 2 MG/ML VIAL SLOW IVP SCH (16:30)
[2021-03-03 16:37] VITALS: TEMP 97.2
[2021-03-03] MEDS ORDERED: Lorazepam 2 MG/ML VIAL SLOW IVP PRN (17:00)
[2021-03-03] MEDS ORDERED: Vancomycin HCl 750 MG in Sodium Chloride 0.9% 250 ML 250 ML IVPB SCH (20:00)
== END 2021-03-03 17:40 | disposition expired | DRG 871 ==
LOC: ERS 08:59 → IMCU/EMU 11:57
PROVIDERS: ADMIT Emergency Medicine; ATTEND Internal Medicine
PROC: 5A09457 Assistance with Respiratory Ventilation, 24-96 Consecutive Hours, Continuous Positive Airway Pressure (ICD-10-PCS; principal; 2021-02-24)
DX: A41.9 Sepsis, unspecified organism (principal); J18.9 Pneumonia, unspecified organism; J96.21 Acute and chronic respiratory failure with hypoxia; N17.9 Acute kidney failure, unspecified; E87.2 Acidosis; M62.82 Rhabdomyolysis; J44.1 Chronic obstructive pulmonary disease with (acute) exacerbation; J44.0 Chronic obstructive pulmonary disease with (acute) lower respiratory infection; E87.1 Hypo-osmolality and hyponatremia; I48.92 Unspecified atrial flutter; G93.49 Other encephalopathy; I24.8 Other forms of acute ischemic heart disease; Z66 Do not resuscitate; Z51.5 Encounter for palliative care; I48.91 Unspecified atrial fibrillation; R65.20 Severe sepsis without septic shock; E78.5 Hyperlipidemia, unspecified; I10 Essential (primary) hypertension; Z90.710 Acquired absence of both cervix and uterus; Z90.49 Acquired absence of other specified parts of digestive tract; Z87.891 Personal history of nicotine dependence; Z79.2 Long term (current) use of antibiotics; Z79.52 Long term (current) use of systemic steroids; F29 Unspecified psychosis not due to a substance or known physiological condition; F32.9 Major depressive disorder, single episode, unspecified; F41.9 Anxiety disorder, unspecified
CPT/HCPCS: 0240U; 36415; 36416; 36600; 71045; 71250; 80048; 80053; 80202; 82550; 82553; 82805; 83605; 83735; 83880; 84100; 84145; 84484; 85025; 87040; 93005; 93010; 93306; 94640; 94660; 96365; 96366; 96367; 96375; 99292; J0282; J0456; J0696; J1160; J1170; J1630; J1650; J1815; J1940; J1956; J2060; J2185; J2270; J2405; J2543; J2920; J2930; J3370; J3475; J3490; J7050; J7070; J7611; J7614; J7620; J7626; S0028